=== PATIENT | male | born 1955 | race Caucasian/White ===

== ENCOUNTER 2017-01-27 08:11 | Outpatient (CLI) | payer MEDICAID | END 2017-01-27 08:12 | disposition home or self-care (01) | DX: K90.0 Celiac disease (principal); E78.5 Hyperlipidemia, unspecified; Z12.5 Encounter for screening for malignant neoplasm of prostate; K86.81 Exocrine pancreatic insufficiency ==

== ENCOUNTER 2017-03-06 09:13 | Outpatient (CLI) | payer MEDICAID | END 2017-03-06 09:14 | disposition home or self-care (01) | DX: K90.0 Celiac disease (principal); K86.81 Exocrine pancreatic insufficiency ==

== ENCOUNTER 2017-11-18 17:14 | Emergency (ER) | payer MEDICAID ==
[2017-11-18 17:42] LABS: BASOPHILS % (AUTO) 0.4 %; EOSINOPHILS # (AUTO) 0.1 10^3/uL (0.0-0.7); EOSINOPHILS % (AUTO) 0.8 %; HCT - HEMATOCRIT 41.5 % (42.0-52.0); HGB - HEMOGLOBIN 13.7 g/dL (14.0-18.0); LYMPHOCYTES # (AUTO) 1.7 10^3/uL (1.5-3.5); LYMPHOCYTES % (AUTO) 15.3 %; MEAN CORPUSCULAR HEMOGLOBIN 29.5 pg (27.0-31.0); MEAN CORPUSCULAR HGB CONC 32.9 g/dL (32.0-36.0); MEAN CORPUSCULAR VOLUME 89.7 fL (80.0-94.0); MEAN PLATELET VOLUME 8.4 fL (7.4-11.4); MONOCYTES # (AUTO) 0.6 10^3/uL (0.0-1.0); MONOCYTES % (AUTO) 5.7 %; NEUTROPHILS # (AUTO) 8.7 10^3/uL (1.5-6.6); NEUTROPHILS % (AUTO) 77.8 %; RED BLOOD COUNT 4.63 10^6/uL (4.70-6.10); RED CELL DISTRIBUTION WIDTH 14.3 % (12.0-15.0); UNCORRECTED WHITE BLOOD COUNT 11.2 x10^3/uL; WHITE BLOOD COUNT 11.2 x10^3/uL (4.8-10.8)
[2017-11-18] MEDS ORDERED: SODIUM CHLORIDE 0.9% 1,000 ML IV ONE (17:44)
[2017-11-18] MEDS ORDERED: KETOROLAC 60 MG/2 ML VIAL IVP STA (17:44)
[2017-11-18 17:58] LABS: ALBUMIN/GLOBULIN RATIO 1.3 (1.0-2.2); BILIRUBIN,TOTAL 0.6 mg/dL (0.2-1.0); CALCIUM 9.4 mg/dL (8.5-10.3); POTASSIUM 3.4 mmol/L (3.5-5.0); TOTAL PROTEIN 7.4 g/dL (6.7-8.2)
[2017-11-18] MEDS ORDERED: LIDOCAINE 2000 MG/500 ML 2,000 MG/500 ML BAG IV SCH (18:00)
--- NOTE | 2017-11-18 18:06 | ED Physician Documentation ---
PD HPI ABD PAIN - Stated complaint Stated Complaint: SIDE PX - Chief complaint Chief Complaint: Abd Pain - History obtained from History obtained from: Patient - History of Present Illness Timing - onset: How many hours ago (2) Timing - duration: Hours (2) Timing - details: Abrupt onset Pain level max: 10 Pain level now: 10 Quality: Aching, Sharp, Pain Location: Other (r flank) Radiation: Right flank Improved by: Other (nothing) Worsened by: Other (nothing) Associated symptoms: Nausea. No: Fever, Vomiting, Hematemesis, Diarrhea, Constipation, Melena, Hematochezia, Dysuria, Hematuria Similar symptoms before: Has not had sx before Recently seen: Not recently seen Review of Systems Ten Systems: 10 systems reviewed and negative Constitutional: denies: Fever, Chills Ears: denies: Ear pain Nose: denies: Rhinorrhea / runny nose, Congestion Throat: denies: Sore throat Cardiac: denies: Chest pain / pressure Respiratory: denies: Cough GI: denies: Nausea, Vomiting, Diarrhea Skin: denies: Rash Musculoskeletal: denies: Neck pain, Back pain Neurologic: denies: Headache PD PAST MEDICAL HISTORY - Past Medical History Past Medical History: Yes Cardiovascular: None Respiratory: None Endocrine/Autoimmune: None GI: Colon polyps, Other : None HEENT: None Psych: None Musculoskeletal: None Derm: None - Past Surgical History Past Surgical History: Yes Ortho: Arthroscopic surgery HEENT: Tonsil/Adenoidectomy - Present Medications Home Medications: Ambulatory Orders Medication Instructions Recorded Confirmed Cholecalciferol (Vitamin D3) 1 tab PO DAILY 01/15/16 01/15/16 [Vitamin D] Ibuprofen [Motrin] 800 mg PO Q8H PRN #30 tablet 11/18/17 Ondansetron Odt [Zofran] 4 mg TL Q6H PRN #10 tablet 11/18/17 Oxycodone HCl/Acetaminophen 1 - 2 each PO Q6H PRN #14 tablet 11/18/17 [Percocet 5-325 mg Tablet] - Allergies Allergies/Adverse Reactions: Allergies Allergy/AdvReac Type Severity Reaction Status Date / Time gluten Allergy Itching Verified 01/15/16 09:01 - Social History Does the pt smoke?: No Smoking Status: Never smoker Does the pt drink ETOH?: Yes Does the pt have substance abuse?: No - Immunizations Immunizations are current?: Yes PD ED PE NORMAL - Vitals Vital signs reviewed: Yes - General General: Alert and oriented X 3, No acute distress - HEENT HEENT: Moist mucous membranes - Neck Neck: Supple, no meningeal sign - Cardiac Cardiac: RRR - Respiratory Respiratory: No respiratory distress, Clear bilaterally - Abdomen Abdomen: Soft, Non tender, Non distended - Back Back: No CVA TTP - Derm Derm: Warm and dry - Neuro Neuro: Alert and oriented X 3 - Psych Psych: Normal mood, Normal affect Results - Vitals Vitals: Vital Signs - 24 hr 11/18/17 11/18/17 17:16 20:38 Temperature 35.8 C L Heart Rate 66 65 Respiratory 18 16 Rate Blood Pressure 161/86 H 134/84 H O2 Saturation 97 98 Oxygen O2 Source Room air - Labs Labs: Laboratory Tests 11/18/17 11/18/17 11/18/17 17:30 17:30 19:45 WBC 11.2 H RBC 4.63 L Hgb 13.7 L Hct 41.5 L MCV 89.7 MCH 29.5 MCHC 32.9 RDW 14.3 Plt Count 240 MPV 8.4 Neut # 8.7 H Lymph # 1.7 [place] # 0.6 Eos # 0.1 Baso # 0.0 Absolute Nucleated RBC 0.00 Nucleated RBC % 0.0 Sodium 141 Potassium 3.4 L Chloride 102 Carbon Dioxide 29 Anion Gap 10.0 BUN 14 Creatinine 1.0 Estimated GFR (MDRD) 76 L Glucose 119 H Calcium 9.4 Total Bilirubin 0.6 AST 17 ALT 17 Alkaline Phosphatase 81 Total Protein 7.4 Albumin 4.2 Globulin 3.2 Albumin/Globulin Ratio 1.3 Lipase 25 Urine Color YELLOW Urine Clarity CLEAR Urine pH 5.5 Ur Specific [place] >=1.030 H Urine Protein NEGATIVE Urine Glucose (UA) NEGATIVE Urine Ketones NEGATIVE Urine Occult Blood LARGE H Urine Nitrite NEGATIVE Urine Bilirubin NEGATIVE Urine Urobilinogen 0.2 (NORMAL) Ur Leukocyte Esterase NEGATIVE Urine RBC 6-10 H Urine WBC 0-3 Ur Squamous Epith Cells NONE SEEN Urine Bacteria None Seen Ur Microscopic Review INDICATED Urine Culture Comments NOT INDICATED - Rads (name of study) CT abd/pelvis Radiology: Prelim report reviewed, EMP read contemporaneously, See rad report ( Distal right ureteral stone measuring 3-4 mm, with minimal hydronephrosis. Nonobstructing 2 mm left renal stone. ) PD MEDICAL DECISION MAKING - ED course Complexity details: reviewed results, re-evaluated patient, considered differential, d/w patient ED course: Patient is a 62-year-old male who presents to the emergency department for right flank pain. Found to have a right ureteral stone. Pain greatly improved with IV lidocaine and Toradol. Tolerating p.o. without difficulty. Will prescribe pain medication for home. No evidence of UTI. Patient counseled regarding signs and symptoms for which I believe and urgent re-evaluation would be necessary. Patient with good understanding of and agreement to plan and is comfortable going home at this time This document was made in part using voice recognition software. While efforts are made to proofread this document, sound alike and grammatical errors may occur. Departure - Departure Disposition: 01 Home, Self Care Clinical Impression: Renal colic on right side Condition: Good Instructions: ED Stone Renal W Colic Follow-Up: Constance Burris ARNP [Primary Care Provider] - Within 1 week Prescriptions: Ibuprofen [Motrin] 800 mg PO Q8H PRN #30 tablet PRN Reason: PAIN &/OR FEVER Ondansetron Odt [Zofran] 4 mg TL Q6H PRN #10 tablet PRN Reason: Nausea / Vomiting Oxycodone HCl/Acetaminophen [Percocet 5-325 mg Tablet] 1 - 2 each PO Q6H PRN # 14 tablet PRN Reason: pain Comments: Return if you worsen. The stone should pass on it's own. Do not drink alcohol or drive while on narcotic pain medicine. Note that many narcotic pain relievers also contain tylenol/acetaminophen. Please ensure that your total dose of acetaminophen from all sources does not exceed 3 grams (3000mg) per day. You may constipated on this medication, take a stool softener such as "Colace" twice a day while you are on it. Also recommend a kvpv-[id number] laxative such as senna or MiraLAX any day that you do not have a bowel movement. If you received narcotic pain medication in the emergency department, do not drive or operate machinery for the next 24 hours. Discharge Date/Time: 11/18/17 20:45
--- NOTE | 2017-11-18 19:02 | CT Preliminary Report ---
Exam: CT ABDOMEN/PELVIS W/O IMPRESSION: 1. Distal right ureteral stone measuring 3-4 mm, with minimal hydronephrosis. 2. Nonobstructing 2 mm left renal stone. [facility] SITE ID: [id number]
--- NOTE | 2017-11-18 19:05 | CT Report ---
EXAM: CT ABDOMEN AND PELVIS (CT KUB) EXAM DATE: 11/18/2017 06:29 PM. CLINICAL HISTORY: R flank pain, poss. Renal stone. COMPARISONS: None. TECHNIQUE: Routine axial helical CT imaging was performed through the abdomen and pelvis without IV c ontrast. Reconstructions: Coronal and sagittal. In accordance with CT protocol optimization, one or more of the following dose reduction techniques w ere utilized for this exam: automated exposure control, adjustment of mA and/or KV based on patient s ize, or use of iterative reconstructive technique. FINDINGS: Lung Bases: Clear lung bases. No pleural effusion. Small hiatal hernia. Right Kidney/Ureter: A distal right ureteral stone measures about 3-4 mm and is roughly 3 cm from the UVJ. Minimal hydronephrosis. Otherwise unremarkable. Left Kidney/Ureter: Nonobstructing 2 mm lower pole stone. No ureteral stone or hydronephrosis. Otherw ise unremarkable. Other Solid Organs: Calcification in the right lobe of liver. Otherwise unremarkable liver, spleen, p ancreas, and adrenal glands. Gallbladder/Bile Ducts: Unremarkable. Peritoneal Cavity: No free fluid, free air or ja adenopathy. Bowel is grossly unremarkable. Pelvic Organs: No bladder stones or wall thickening. Noncontrast images of the visualized pelvic orga ns are unremarkable. Vasculature: Unremarkable. Other: None. IMPRESSION: 1. Distal right ureteral stone measuring 3-4 mm, with minimal hydronephrosis. 2. Nonobstructing 2 mm left renal stone. [facility] Referring Provider Line: [phone] SITE ID: [id number]
[2017-11-18 19:58] LABS: BILIRUBIN,URINE NEGATIVE (NEGATIVE); PH,URINE 5.5 PH (5.0-7.5)
[2017-11-18 20:02] LABS: UA w/ MICROSCOPIC CHARGE YES
[2017-11-18 20:10] LABS: UR CULTURE IF IND NOT INDICATED; WBC,URINE 0-3 /HPF (0-3)
[2017-11-18] MEDS ORDERED: oxyCODONE/ACET 5/325 Prepack 4 PO STA (20:25)
[2017-11-18] MEDS ORDERED: oxyCOD/ACETAMIN 5 MG/325 MG TABLET PO STA (20:25)
[2017-11-18 20:40] VITALS: BP 134/84
== END 2017-11-18 20:45 | disposition home or self-care (01) ==
LOC: ED 17:14
DX: N23 Unspecified renal colic (principal); N13.2 Hydronephrosis with renal and ureteral calculous obstruction
CPT/HCPCS: 36415; 74176; 80053; 81001; 83690; 85025; 96361; 96374; 99283; 99284; A9270; 81003; 87086

== ENCOUNTER 2017-12-02 15:22 | Outpatient (CLI) | payer MEDICAID ==
[2017-12-02 19:37] LABS: BASOPHILS % (AUTO) 0.4 %; EOSINOPHILS # (AUTO) 0.1 10^3/uL (0.0-0.7); EOSINOPHILS % (AUTO) 1.2 %; HGB - HEMOGLOBIN 12.2 g/dL (14.0-18.0); LYMPHOCYTES # (AUTO) 1.8 10^3/uL (1.5-3.5); LYMPHOCYTES % (AUTO) 20.3 %; MEAN CORPUSCULAR HEMOGLOBIN 28.7 pg (27.0-31.0); MEAN CORPUSCULAR HGB CONC 31.7 g/dL (32.0-36.0); MEAN CORPUSCULAR VOLUME 90.5 fL (80.0-94.0); MEAN PLATELET VOLUME 8.6 fL (7.4-11.4); MONOCYTES # (AUTO) 0.7 10^3/uL (0.0-1.0); MONOCYTES % (AUTO) 7.5 %; NEUTROPHILS # (AUTO) 6.4 10^3/uL (1.5-6.6); NEUTROPHILS % (AUTO) 70.6 %; PLT - PLATELET COUNT 334 10^3/uL (130-450); RED BLOOD COUNT 4.26 10^6/uL (4.70-6.10); RED CELL DISTRIBUTION WIDTH 13.5 % (12.0-15.0); WHITE BLOOD COUNT 9.1 x10^3/uL (4.8-10.8)
[2017-12-02 20:06] LABS: CALCIUM 8.7 mg/dL (8.5-10.3); CREATININE 1.3 mg/dL (0.6-1.2)
== END 2017-12-02 15:23 | disposition home or self-care (01) ==
LOC: LAB.F 15:22
PROVIDERS: ATTEND Physician Assistant
DX: N20.1 Calculus of ureter (principal)
CPT/HCPCS: 36415; 80048; 85025

== ENCOUNTER 2018-02-10 08:11 | Outpatient (CLI) | payer MEDICAID ==
[2018-02-10 11:08] LABS: BASOPHILS % (AUTO) 0.4 %; EOSINOPHILS # (AUTO) 0.1 10^3/uL (0.0-0.7); EOSINOPHILS % (AUTO) 1.2 %; HGB - HEMOGLOBIN 13.9 g/dL (14.0-18.0); LYMPHOCYTES # (AUTO) 1.8 10^3/uL (1.5-3.5); LYMPHOCYTES % (AUTO) 23.8 %; MEAN CORPUSCULAR HEMOGLOBIN 29.8 pg (27.0-31.0); MEAN CORPUSCULAR HGB CONC 33.2 g/dL (32.0-36.0); MEAN CORPUSCULAR VOLUME 89.8 fL (80.0-94.0); MONOCYTES # (AUTO) 0.4 10^3/uL (0.0-1.0); MONOCYTES % (AUTO) 5.7 %; NEUTROPHILS # (AUTO) 5.2 10^3/uL (1.5-6.6); NEUTROPHILS % (AUTO) 68.9 %; PLT - PLATELET COUNT 224 10^3/uL (130-450); RED BLOOD COUNT 4.65 10^6/uL (4.70-6.10); RED CELL DISTRIBUTION WIDTH 14.6 % (12.0-15.0); WHITE BLOOD COUNT 7.6 x10^3/uL (4.8-10.8)
[2018-02-10 11:36] LABS: ALBUMIN 3.9 g/dL (3.2-5.5); ALBUMIN/GLOBULIN RATIO 1.3 (1.0-2.2); ALKALINE PHOSPHATASE 73 IU/L (42-121); ALT ALANINE AMINOTRANSFERASE 18 IU/L (10-60); AST ASPARTATE AMINOTRANSFERASE 19 IU/L (10-42); BILIRUBIN,TOTAL 0.8 mg/dL (0.2-1.0); BUN - BLOOD UREA NITROGEN 14 mg/dL (6-20); CALCIUM 8.9 mg/dL (8.5-10.3); CARBON DIOXIDE - CO2 27 mmol/L (21-32); CHLORIDE 103 mmol/L (101-111); CHOL/HDL RATIO 4.6 (<5.0); CHOLESTEROL 213 mg/dL; CREATININE 0.8 mg/dL (0.6-1.2); GFR - MDRD 98 (>89); GLUCOSE 101 mg/dL (70-100); HDL CHOLESTEROL 46 mg/dL; LDL CHOLESTEROL,CALCULATED 155 mg/dL; LDL/HDL RATIO 3.4 (<3.6); SODIUM 136 mmol/L (135-145); VLDL CHOLESTEROL 12 mg/dL
== END 2018-02-10 08:12 | disposition home or self-care (01) ==
LOC: LAB.F 08:11
PROVIDERS: ATTEND Nurse Practitioner Family
DX: E78.5 Hyperlipidemia, unspecified (principal); R53.83 Other fatigue; Z12.5 Encounter for screening for malignant neoplasm of prostate
CPT/HCPCS: 36415; 80053; 80061; 83721; 84153; 84443; 85025

== ENCOUNTER 2018-05-26 14:44 | Outpatient (CLI) | payer MEDICAID ==
--- NOTE | 2018-05-26 16:23 | XRAY Report ---
Procedure Date: 05/26/2018 Accession Number: [id number] / [id number] Procedure: XR - Chest 2 View X-Ray CPT Code: 53310 FULL RESULT: EXAM: CHEST RADIOGRAPHY EXAM DATE: 05/26/2018 04:01 PM. CLINICAL HISTORY: DYSPNEA AT REST,SYMPTOM,HEMPTYSIS. COMPARISON: 05/16/2016. TECHNIQUE: 2 views. FINDINGS: Lungs/Pleura: There is new patchy airspace disease in the right lower lobe. There is mild airspace density in the left costophrenic angle. Upper lung zones are clear. Negative for pneumothorax. Mediastinum: Heart size is normal. Trachea is midline. Other: None. IMPRESSION: Right lower lobe airspace disease and mild left lower lobe airspace disease, suspicious for pneumonia or aspiration. [facility]
--- NOTE | 2018-05-26 17:39 | Nuclear Medicine Report ---
Procedure Date: 05/26/2018 Accession Number: [id number] / [id number] Procedure: NM - Lung Vent/Perf V/Q CPT Code: FULL RESULT: EXAM: VENTILATION/PERFUSION SCAN (V/Q SCAN) EXAM DATE: 05/26/2018 04:09 PM. CLINICAL HISTORY: DYSPNEA. HEMOPTYSIS. COMPARISON: Chest x-ray today. TECHNIQUE: Patient was administered 39.7 mCi of technetium 99m DTPA aerosol by inhalation and 8 standard ventilation images of the lungs were obtained. Next, the patient was injected with 4.9 mCi of technetium 99m MAA intravenously and 8 standard perfusion images of the lungs were obtained. FINDINGS: Ventilation Scan: Symmetric and homogenous pulmonary radioaerosol deposition is present. No significant focal defects. Lung volume is normal. No matched ventilation/perfusion defects to indicate air trapping. Perfusion Scan: Symmetric and homogenous perfusion activity is present. No ventilation/perfusion mismatches are identified. IMPRESSION: No ventilation/perfusion mismatches to indicate pulmonary emboli. Low probability for acute pulmonary embolism. [facility]
== END 2018-05-26 14:45 | disposition home or self-care (01) ==
LOC: DI 14:44
PROVIDERS: ATTEND Nurse Practitioner Family
DX: R06.09 Other forms of dyspnea (principal); R04.2 Hemoptysis
CPT/HCPCS: 71046; 78582

== ENCOUNTER 2018-08-28 08:40 | Outpatient (CLI) | payer MEDICAID ==
[2018-08-28 17:54] LABS: BASOPHILS % (AUTO) 0.5 %; EOSINOPHILS # (AUTO) 0.1 10^3/uL (0.0-0.7); EOSINOPHILS % (AUTO) 0.8 %; HGB - HEMOGLOBIN 14.8 g/dL (14.0-18.0); LYMPHOCYTES # (AUTO) 1.7 10^3/uL (1.5-3.5); LYMPHOCYTES % (AUTO) 23.9 %; MEAN CORPUSCULAR HEMOGLOBIN 30.4 pg (27.0-31.0); MEAN CORPUSCULAR HGB CONC 32.9 g/dL (32.0-36.0); MEAN CORPUSCULAR VOLUME 92.4 fL (80.0-94.0); MEAN PLATELET VOLUME 9.9 fL (7.4-11.4); MONOCYTES # (AUTO) 0.3 10^3/uL (0.0-1.0); MONOCYTES % (AUTO) 5.1 %; NEUTROPHILS # (AUTO) 4.8 10^3/uL (1.5-6.6); NEUTROPHILS % (AUTO) 69.7 %; PLT - PLATELET COUNT 236 10^3/uL (130-450); RED BLOOD COUNT 4.86 10^6/uL (4.70-6.10); RED CELL DISTRIBUTION WIDTH 15.1 % (12.0-15.0); WHITE BLOOD COUNT 6.9 x10^3/uL (4.8-10.8)
[2018-08-28 18:24] LABS: ALBUMIN 4.1 g/dL (3.2-5.5); ALBUMIN/GLOBULIN RATIO 1.4 (1.0-2.2); BILIRUBIN,TOTAL 1.2 mg/dL (0.2-1.0); CALCIUM 9.3 mg/dL (8.5-10.3); CREATININE 0.9 mg/dL (0.6-1.2)
== END 2018-08-28 08:41 | disposition home or self-care (01) ==
LOC: LAB.F 08:40
PROVIDERS: ATTEND Nurse Practitioner Family
DX: F41.8 Other specified anxiety disorders (principal); Z12.5 Encounter for screening for malignant neoplasm of prostate
CPT/HCPCS: 36415; 80053; 84153; 84443; 85025

== ENCOUNTER 2019-01-22 07:57 | Outpatient (CLI) | payer MEDICAID ==
[2019-01-22 08:17] LABS: BASOPHILS % (AUTO) 0.6 %; EOSINOPHILS # (AUTO) 0.1 10^3/uL (0.0-0.7); HGB - HEMOGLOBIN 14.5 g/dL (14.0-18.0); LYMPHOCYTES # (AUTO) 1.9 10^3/uL (1.5-3.5); LYMPHOCYTES % (AUTO) 35.2 %; MEAN CORPUSCULAR HEMOGLOBIN 31.2 pg (27.0-31.0); MEAN CORPUSCULAR HGB CONC 33.6 g/dL (32.0-36.0); MEAN PLATELET VOLUME 8.9 fL (7.4-11.4); MONOCYTES # (AUTO) 0.4 10^3/uL (0.0-1.0); MONOCYTES % (AUTO) 8.3 %; NEUTROPHILS # (AUTO) 2.9 10^3/uL (1.5-6.6); NEUTROPHILS % (AUTO) 53.9 %; PLT - PLATELET COUNT 193 10^3/uL (130-450); RED BLOOD COUNT 4.63 10^6/uL (4.70-6.10); RED CELL DISTRIBUTION WIDTH 13.7 % (12.0-15.0); WHITE BLOOD COUNT 5.4 x10^3/uL (4.8-10.8)
[2019-01-22 09:32] LABS: THYROID STIMULATING HORMONE 1.5 uIU/mL (0.34-5.60)
[2019-01-22 09:34] LABS: FREE T4 (FREE THYROXINE) 0.84 ng/dL (0.58-1.64)
--- NOTE | 2019-01-24 14:34 | Ultrasound Report ---
Reason: THYROID NODULE,RIGHT Procedure Date: 01/22/2019 Accession Number: [id number] / [id number] Procedure: US - Head or Neck Soft Tissue CPT Code: FULL RESULT: EXAM: THYROID ULTRASOUND EXAM DATE: 01/22/2019 08:58 AM. CLINICAL HISTORY: THYROID NODULE, RIGHT. COMPARISON: None. TECHNIQUE: Real time sonographic imaging of the thyroid was performed by the tilting head band sawyer. Multiple quality control representative static images were saved for review. FINDINGS: THYROID GLAND: Right Lobe: 5.1 x 2.0 x 2.3 cm, volume 12.3 cc. Normal background echotexture. Right Lobe Nodules: 1. In the lateral aspect of the right mid thyroid, there is a partially cystic nodule measuring 0.6 x 0.5 x 0.4 cm. No calcification or vascularity. 2. In the medial aspect of the right mid thyroid, there is a spongiform nodule measuring 0.6 x 0.6 x 0.5 cm. No calcification. Mild peripheral vascularity is present. Left Lobe: 4.4 x 1.5 x 1.8 cm, volume 6.2 cc. Normal background echotexture. Left Lobe Nodules: 1. In the medial aspect of the left inferior thyroid, there is a simple cyst measuring 0.3 x 0.3 x 0.3 cm. Isthmus: 0.38 cm AP. Isthmic Nodules: None. LYMPH NODES: No adenopathy demonstrated in the central or lateral compartment. OTHER: None. IMPRESSION: 1. There are 2 subcentimeter very low suspicion nodules in the right lobe of the thyroid, and a tiny benign cyst in the left lobe of the thyroid. These nodules do not require routine sonographic follow-up per guidelines. 2. No cervical adenopathy identified. Management recommendations are based on 2015 [place] [employer] Management Guidelines for Adult Patients with Thyroid Nodules and Differentiated Thyroid Cancer. [facility]
== END 2019-01-22 07:58 | disposition home or self-care (01) ==
LOC: DI 07:57
PROVIDERS: ATTEND Nurse Practitioner Family
DX: E04.2 Nontoxic multinodular goiter (principal); R61 Generalized hyperhidrosis
CPT/HCPCS: 36415; 76536; 84439; 84443; 84481; 85025

== ENCOUNTER 2019-03-10 15:05 | Outpatient (CLI) | payer MEDICAID | END 2019-03-10 15:06 | disposition home or self-care (01) | LOC: LAB.F 15:05 | PROVIDERS: ATTEND Nurse Practitioner Family | DX: Z53.9 Procedure and treatment not carried out, unspecified reason (principal) ==

== ENCOUNTER 2019-03-11 08:37 | Outpatient (CLI) | payer MEDICAID | END 2019-03-11 08:38 | disposition home or self-care (01) | LOC: LAB.F 08:37 | PROVIDERS: ATTEND Nurse Practitioner Family | DX: R53.83 Other fatigue (principal) | CPT/HCPCS: 36415; 84403 ==

== ENCOUNTER 2019-03-19 08:12 | Outpatient (CLI) | payer MEDICAID ==
[2019-03-19 11:51] LABS: THYROID STIMULATING HORMONE 1.71 uIU/mL (0.34-5.60)
[2019-03-19 11:55] LABS: FREE T4 (FREE THYROXINE) 1.01 ng/dL (0.58-1.64)
== END 2019-03-19 08:13 | disposition home or self-care (01) ==
LOC: LAB.F 08:12
PROVIDERS: ATTEND Internal Medicine Endocrinology, Diabetes & Metabolism
DX: R45.1 Restlessness and agitation (principal); R61 Generalized hyperhidrosis
CPT/HCPCS: 36415; 81599; 84402; 84403; 84439; 84443

== ENCOUNTER 2019-06-03 08:19 | Outpatient (CLI) | payer MEDICAID ==
[2019-06-03 17:27] LABS: CHOL/HDL RATIO 4.7 (<5.0); CHOLESTEROL 262 mg/dL; HDL CHOLESTEROL 56 mg/dL; LDL CHOLESTEROL,CALCULATED 195 mg/dL; LDL/HDL RATIO 3.5 (<3.6); VLDL CHOLESTEROL 11 mg/dL
== END 2019-06-03 08:20 | disposition home or self-care (01) ==
LOC: LAB.S 08:19
PROVIDERS: ATTEND Internal Medicine
DX: Z00.00 Encounter for general adult medical examination without abnormal findings (principal); Z12.5 Encounter for screening for malignant neoplasm of prostate
CPT/HCPCS: 36415; 80061; 83721; 84153

== ENCOUNTER 2019-09-25 11:13 | Outpatient (CLI) | payer MEDICAID ==
--- NOTE | 2019-09-27 00:34 | Ultrasound Report ---
Reason: FLANK PAIN Procedure Date: 09/25/2019 Accession Number: [id number] / [id number] Procedure: US - Retroperitoneal CPT Code: Final Report FULL RESULT: EXAM: RENAL ULTRASOUND EXAM DATE: 09/25/2019 12:11 PM. CLINICAL HISTORY: Chronic right flank pain. COMPARISON: ABDOMEN/PELVIS W/O 11/18/2017 6:21 PM. TECHNIQUE: Real-time scanning was performed with static images obtained. FINDINGS: Right Kidney: 11.0 x 5.4 x 5.2 cm. Normal echotexture with no stones, contour-deforming masses, or hydronephrosis. Left Kidney: 12.2 x 5.7 x 6.0 cm. Normal echotexture with no ureteral stones, contour-deforming masses, or hydronephrosis. Nonobstructing inferior intrarenal stone 3 x 5 x 3 mm. Bladder: Bilateral jets seen. The prevoid bladder volume was 60 cc. The postvoid bladder volume was 2 cc. Other: Heterogeneous prostate 36.3 cc volume. IMPRESSION: Nonobstructing calcification in the inferior left kidney, otherwise unremarkable renal ultrasound. [facility]
== END 2019-09-25 11:14 | disposition home or self-care (01) ==
LOC: DI 11:13
PROVIDERS: ATTEND Urology
DX: N20.0 Calculus of kidney (principal)
CPT/HCPCS: 76770

== ENCOUNTER 2020-05-31 07:08 | Outpatient (CLI) | payer MEDICAID ==
[2020-05-31 15:12] LABS: BASOPHILS % (AUTO) 0.6 %; EOSINOPHILS # (AUTO) 0.1 10^3/uL (0.0-0.7); EOSINOPHILS % (AUTO) 1.7 %; LYMPHOCYTES # (AUTO) 2.2 10^3/uL (1.5-3.5); LYMPHOCYTES % (AUTO) 31.4 %; MEAN CORPUSCULAR HEMOGLOBIN 31.7 pg (27.0-31.0); MEAN CORPUSCULAR HGB CONC 31.8 g/dL (32.0-36.0); MEAN CORPUSCULAR VOLUME 99.8 fL (80.0-94.0); MEAN PLATELET VOLUME 11.3 fL (7.4-11.4); MONOCYTES # (AUTO) 0.6 10^3/uL (0.0-1.0); MONOCYTES % (AUTO) 8.9 %; NEUTROPHILS % (AUTO) 57.1 %; PLT - PLATELET COUNT 219 10^3/uL (130-450); RED BLOOD COUNT 4.41 10^6/uL (4.70-6.10); RED CELL DISTRIBUTION WIDTH 13.4 % (12.0-15.0)
[2020-05-31 15:31] LABS: ALBUMIN 4.1 g/dL (3.2-5.5); ALBUMIN/GLOBULIN RATIO 1.5 (1.0-2.2); ALKALINE PHOSPHATASE 68 IU/L (42-121); ALT ALANINE AMINOTRANSFERASE 23 IU/L (10-60); AST ASPARTATE AMINOTRANSFERASE 25 IU/L (10-42); BILIRUBIN,TOTAL 0.9 mg/dL (0.2-1.0); BUN - BLOOD UREA NITROGEN 16 mg/dL (6-20); CALCIUM 8.9 mg/dL (8.5-10.3); CARBON DIOXIDE - CO2 28 mmol/L (21-32); CHLORIDE 101 mmol/L (101-111); CHOL/HDL RATIO 4.4 (<5.0); CHOLESTEROL 262 mg/dL; CREATININE 0.9 mg/dL (0.6-1.2); GLUCOSE 99 mg/dL (70-100); HDL CHOLESTEROL 60 mg/dL; LDL CHOLESTEROL,CALCULATED 190 mg/dL; LDL/HDL RATIO 3.2 (<3.6); SODIUM 139 mmol/L (135-145); TOTAL PROTEIN 6.9 g/dL (6.7-8.2); VLDL CHOLESTEROL 12 mg/dL
[2020-05-31 15:38] LABS: PSA FREE 0.205 ng/mL (0.16-2.81)
[2020-05-31 15:39] LABS: PSA TOTAL 0.602 ng/mL (0.000-2.000)
[2020-05-31 15:47] LABS: LITHIUM < 0.05 mmol/L
--- NOTE | 2020-05-31 17:13 | XRAY Report ---
PROCEDURE: Chest 2 View X-Ray INDICATIONS: PERSONAL HISTORY OF LATENT TB TECHNIQUE: 2 view(s) of the chest. COMPARISON: Chest x-ray 05/25/2018. FINDINGS: Surgical changes and devices: None. Lungs and pleura: No pleural effusions or pneumothorax. Lungs are clear. Mediastinum: Mediastinal contours are normal. Heart size is minimally prominent. Bones and chest wall: No suspicious bony abnormalities. Soft tissues appear unremarkable. IMPRESSION: No acute pulmonary process. Reviewed by: Linda Gonsalez MD on 05/31/2020 5:12 PM PDT Approved by: Linda Gonsalez MD on 05/31/2020 5:12 PM PDT Station ID: [id number]
== END 2020-05-31 07:09 | disposition home or self-care (01) ==
LOC: LAB.S 07:08 → DI.S 07:09
PROVIDERS: ATTEND Registered Nurse
DX: Z86.15 Personal history of latent tuberculosis infection (principal); E78.5 Hyperlipidemia, unspecified; G47.00 Insomnia, unspecified; Z79.899 Other long term (current) drug therapy; F41.8 Other specified anxiety disorders; Z12.5 Encounter for screening for malignant neoplasm of prostate
CPT/HCPCS: 36415; 71046; 80053; 80061; 80178; 82306; 82607; 83721; 84153; 84154; 84443; 85025

== ENCOUNTER 2020-06-27 11:09 | Outpatient (CLI) | payer MEDICAID ==
[2020-06-27] MEDS ORDERED: IOVERSOL 320 50 ML VIAL ONE (11:21)
[2020-06-27] MEDS ORDERED: IOVERSOL 320 100 ML VIAL IVP ONE ×2 (11:21→13:24)
[2020-06-27] MEDS ORDERED: IOVERSOL 320 50 ML VIAL PO ONE (13:22)
--- NOTE | 2020-06-27 17:38 | CT Report ---
PROCEDURE: Abdomen/Pelvis W INDICATIONS: RT FLANK PAIN CONTRAST: IV CONTRAST: Optiray 320 ml: 100 PO CONTRAST: Optiray 320 ml50 TECHNIQUE: After the administration of oral and intravenous contrast, 5 mm thick sections acquired from the diap hragms to the symphysis. 5 mm thick coronal and sagittal reformats were acquired. For radiation dos e reduction, the following was used: automated exposure control, adjustment of mA and/or kV accordin g to patient size. COMPARISON: 11/18/17 FINDINGS: Image quality: Excellent. ABDOMEN: Lung bases: Lung bases demonstrate lower lobe scarring, right greater than left.. Heart size is nor mal. Solid organs: Liver and spleen are normal in size and enhancement. There is a coarse calcification i n the right hepatic lobe. Gallbladder is normal Biliary system is non dilated. Pancreas enhances no rmally. No adrenal nodules. Kidneys demonstrate normal size and enhancement, without hydronephrosis . Nonobstructing 3 mm left lower pole intrarenal calculus. Peritoneum and bowel: There is a short segment of indistinct ascending colon wall thickening without surrounding inflammatory changes. The wall demonstrates questionable diffuse enhancement. Elsewhere, bowel loops demonstrate normal wall thickness and caliber. No free fluid or air. Nodes and vessels: No retroperitoneal or mesenteric adenopathy by size criteria. Aorta and inferior vena cava are normal in size. Miscellaneous: No ventral hernias. PELVIS: Genitourinary: Bladder wall thickness is normal. The prostate gland is moderately enlarged. Miscellaneous: No inguinal hernias or adenopathy. Bones: No suspicious bony lesions. No vertebral body compression fractures. IMPRESSION: 1. There is a short segment in the proximal colon of wall thickening and enhancement. Differential di agnosis includes focal colitis or neoplasm. Colonoscopy is recommended when the patient is able if no t very recently performed. 2. Nonobstructing left lower pole intrarenal calculus. No evidence of obstructive uropathy. 3. Moderate prostatomegaly. Reviewed by: Tameka Walton MD on 06/27/2020 4:36 PM [facility] Approved by: Tameka Walton MD on 06/27/2020 4:36 PM [facility] Station ID: [id number]
== END 2020-06-27 11:10 | disposition home or self-care (01) ==
LOC: DI 11:09
PROVIDERS: ATTEND Physician Assistant
DX: R93.3 Abnormal findings on diagnostic imaging of other parts of digestive tract (principal); N20.0 Calculus of kidney; N40.0 Benign prostatic hyperplasia without lower urinary tract symptoms
CPT/HCPCS: 74177; Q9967